=== PATIENT | female | born 1950 | race Caucasian/White ===

== ENCOUNTER → 2017-12-31 14:06 | Outpatient (CLI) | payer MEDICARE, OTHER ==
[2012-02-01 10:07] VITALS: BMI 32.8
== END | disposition home or self-care (01) ==
LOC: D.RAD 14:06
DX: R05 Cough (principal)

== ENCOUNTER → 2019-03-20 12:32 | Outpatient (CLI) | payer MEDICARE, OTHER ==
[2012-02-01 10:07] VITALS: BMI 32.8
== END | disposition home or self-care (01) ==
LOC: D.MRI 12:32
PROVIDERS: ATTEND Family Medicine
DX: M50.90 Cervical disc disorder, unspecified, unspecified cervical region (principal)